=== PATIENT | male | born 1970 | race Caucasian/White ===

== ENCOUNTER 2024-09-21 14:30 | Emergency (ER) | payer OTHER, SELFPAY ==
[2024-09-21 14:45] VITALS: BP 141/90
[2024-09-21 16:17] VITALS: BP 130/85
--- NOTE | 2024-09-21 16:38 | ED.GENMED ---
History of Present Illness
General
Chief Complaint: Breathing Problem
Source: patient
Exam Limitations: none
Time Seen by Provider: 09/21/24 16:35
Nursing documentation reviewed up to this point in time: agreed with
History of Present Illness
History of Present Illness:
53-year-old male with no past medical history states 3 days ago he got sudden onset of nasal congestion fever coughing, general body aches stomach pains, went to [facility] PCP and tested positive for flu A, PCP was concerned about possible
pneumonia so sent here for evaluation. Patient denies chest pain now or shortness of breath, pain in his chest comes only when he coughs. had similar symptoms 10 days ago.
Past History
Past History
ED Past Medical History: None
ED Past Surgical History: Appendectomy and Orthopedic
Social History
Tobacco: Non-smoker
Alcohol: Occasional
Personal:
Living: with family
Employment: Employed
Review of Systems
Review of Systems
Allergies reviewed?: Yes
All Other Systems: ROS reviewed and negative except as documented in HPI and ROS
EENT: Reports other (Sinus stuffiness); Denies sore throat
Respiratory: Reports cough; Denies trouble breathing
Cardiac: Denies chest pain
ABD/GI: Reports diarrhea (Intermittent small amounts) and anorexia; Denies abdominal pain, nausea, vomiting, bloody stools or black stools
: Denies dysuria, frequency or difficulty voiding
Musculoskeletal: Reports back pain (Painful lower back and hips past few days)
Skin: Reports no symptoms
Neurological: Denies dizzy, headache, weakness or numbness
Phy Exam
Physical Exam
Physical Exam:
GENERAL: No acute distress. A&Ox3.
CONSTITUTIONAL: Afebrile.
EYES: clear, conjunctivae normal
ENMT: moist mucus membranes, Pharynx nl
RESPIRATORY: Regular respirations, nonlabored, lungs with good air movement, right lower lobe mild rhonchi with expiration
CARDIOVASCULAR: Regular rate and rhythm, no murmurs, no rubs.
GI: Soft, nontender, normal BS
MUSCULOSKELETAL: Moves with ease. Well perfused.
SKIN: Warm, dry, pink
PSYCH: Normal mood and affect. Well kept, interactive and appropriate
NEUROLOGIC: Awake, alert and oriented. No focal neurological deficits
Scores
Heart Failure Risk
Heart Failure Risk Score: Not Applicable
Course
Orders/Labs/Results
Orders:
Orders
09/21/24 14:48
CR Chest - 2 Views Urgent
Comment:
Reason For Exam: SOB, +Flu
Vital Signs
Initial and Last Documented VS:
Initial Vital Signs
Temp Pulse Resp BP Pulse Ox
98.6 F 76 17 141/90 97
09/21/24 14:45 09/21/24 14:45 09/21/24 14:45 09/21/24 14:45 09/21/24 14:45
Last Documented Vital Signs
Temp Pulse Resp BP Pulse Ox
98.6 F 79 19 130/85 97
09/21/24 14:45 09/21/24 16:17 09/21/24 16:17 09/21/24 16:17 09/21/24 16:17
MDM/Problems Addressed
MDM/Problems Addressed:
53-year-old male with no past medical history states 3 days ago he got sudden onset of nasal congestion fever coughing, general body aches stomach pains, went to [facility] PCP and tested positive for flu A, PCP was concerned about possible
pneumonia so sent here for evaluation. Patient denies chest pain now or shortness of breath, pain in his chest comes only when he coughs. had similar symptoms 10 days ago. Patient was given steroid taper by PCP.
Afebrile, NAD
Chest x-ray: Radiology report read: Mild right lower lobe pneumonia
Patient is totally alert, nontoxic-appearing, pleasant, states he feels better than he is felt in days
Rx for doxycycline sent to his pharmacy.
*Critical Care Note
Total Time (30-74mins, 75-104mins- exclusive of procedures): Not Applicable
ED Attending Note
-
Portions of this chart may have been created with voice recognition software.� Occasional wrong word or��sound alike� substitutions may have occurred due to the inherent limitations of voice recognition software.
Discharge Plan
Departure
Patient Disposition: Home (Routine Discharge)
Date of Disposition: 09/21/24
Time of Disposition: 16:44
Patient with high blood pressure during this ER visit?: No
Condition: Good
Discharge Problem:
Influenza A, Right lower lobe pneumonia
Instructions: Flu in adults - ED discharge instructions, Pneumonia
Prescriptions:
New
doxycycline hyclate 100 mg capsule
100 mg PO BID Qty: 20 0RF
No Action
diclofenac sodium [Voltaren] 100 GM gel
1 g TP BID Qty: 1 0RF
prednisone 10 MG tablet
10 mg PO .TAPER Qty: 30 0RF
Rx Instructions:
Take 40mg daily x3days, 30mg daily x3days,
20mg daily x3days, 10mg daily x3days.
Referrals:
José Miguel Rogel MD [Active] - As needed
Activity Restrictions/Additional Instructions:
As we discussed, you have a mild right lower lobe pneumonia.
I sent a prescription to your pharmacy for the antibiotic doxycycline to take twice daily for 10 days for
Interventions
Interventions:
*Risk Screen - Suicide Last Done: 09/21/24 14:47
*General Assessment Last Done: 09/21/24 14:47
*Neglect/Abuse Screening Last Done: 09/21/24 14:47
*ED COVID-19 Vaccine History Last Done: 09/21/24 14:47
Discharge Date and Time
Print Language: JAPANESE
== END 2024-09-21 16:57 | disposition home or self-care (01) ==
LOC: EMR 14:30
PROVIDERS: EMERGENCY PHYSICIAN Emergency Medicine; FAMILY PHYSICIAN Family Medicine
DX: J10.00 Influenza due to other identified influenza virus with unspecified type of pneumonia (principal); Z90.49 Acquired absence of other specified parts of digestive tract
CPT/HCPCS: 99283; 71046